=== PATIENT | male | born 2000 | race African-American/Black ===

== ENCOUNTER 2024-02-03 02:03 | Emergency (ER) | payer OTHER, SELFPAY ==
[2024-02-03] MEDS ORDERED: KETOROLAC 30 MG/ML INJ ONE (02:27)
[2024-02-03] MEDS ORDERED: ONDANSETRON 4 MG/2 ML VIAL ONE (02:27)
[2024-02-03] MEDS ORDERED: NA CHLORIDE 0.9% 1,000 ML ONE (02:27)
[2024-02-03 03:34] LABS: Albumin 3.7 g/dL (3.4-5.0); Albumin/Globulin Ratio 0.8 (1.1-1.8); Anion Gap 8.2 mEq/L (5.0-15.0); Bilirubin Total 0.4 mg/dL (0.2-1.0); Globulin 4.4 g/dL (2.3-3.5); Potassium 3.2 mEq/L (3.5-5.1); Protein, Total 8.1 g/dL (6.4-8.2); Specific Gravity > 1.030 (1.005-1.030); Sqamous Epithelial None Seen /HPF (None Seen); Urine Bacteria 20-50 /HPF (<20); Urine Bilirubin NEGATIVE (Negative); Urine Blood Trace (Negative); Urine Clarity Extremely Turbid (Clear); Urine Color Yellow (Yellow); Urine Culture Reflex Order REFLEXED; Urine Glucose NEGATIVE (Negative); Urine Ketones NEGATIVE (Negative); Urine Microscopic Reflex YN ORDER UMIC; Urine Mucus 2+ /HPF (None Seen); Urine Nitrite NEGATIVE (Negative); Urine Protein TRACE (Negative); Urine RBC <5 /HPF (None Seen); Urine Urobilinogen Normal (Normal); Urine WBC >50 /HPF (<5); Urine pH 5.5 (5.0-7.0)
[2024-02-03 03:36] LABS: Absolute Lymphocytes (CBC) 0.8 K/uL (0.7-4.9); Absolute Monocytes 0.7 K/uL (0.1-1.3); Absolute Neutrophil 5.8 K/uL (1.8-8.0); Basophils % 0.3 % (0-1.3); Eosinophils % 0.4 % (0-4.4); Hematocrit 40.6 % (39.6-49.0); Hemoglobin 12.8 g/dL (13.6-17.9); Lymphocytes % 10.5 % (15.3-44.8); MCH 21.9 pg (27.0-35.0); MCHC 31.6 g/dL (32.0-36.0); MCV 69.2 fL (80-100); MPV 7.3 fL (7.6-11.3); Monocytes % 9.5 % (3.3-12.3); Neutrophils % 79.3 % (41.7-73.7); Platelets 262 thou/uL (152-406); RBC Red Blood Cell Count 5.86 M/uL (4.33-5.43); Red Cell Distribution Width 15.3 % (12.1-15.2)
[2024-02-03 03:37] LABS: Blood Morphology Comment NOTED (NOT SEEN); Hypochromasia 1+; Microcytosis 1+; Platelet Estimate ADEQ; White Blood Cell Scan OK (OK)
--- NOTE | 2024-02-03 03:43 | EDPHYS ---
Physician Documentation [facility] Name: Jabari Purdy Age: 23 yrs Sex: Male : 2000 Arrival Date: 02/03/2024 Time: 01:58 Bed 7 Private MD: ED Physician Abram Wu HPI: 02/02 02:32 This 23 yrs old Black or Male presents to ER via Ambulatory with rt complaints of Abdominal Pain. 02:32 Patient presents to the ED with abdominal pain, nausea, vomiting, diarrhea since rt Tuesday. Patient states has not been working with him, now. Did take Imodium which helped the diarrhea. Took Pepto to no relief. Denies other acute complaints at this time, symptoms are moderate in severity, no other aggravating or alleviating factors.. Historical: - Allergies: 02:20 No Known Allergies; al5 - PMHx: 02:20 None; al5 - PSHx: 02:20 None; al5 - Immunization history:: Adult Immunizations up to date. - Infectious Disease History:: Denies. - Social history:: Smoking status: Patient denies any tobacco usage or history of. - Family history:: not pertinent. ROS: 02:32 Constitutional: Negative for fever, chills, and weight loss, Cardiovascular: Negative rt for chest pain, palpitations, and edema, Respiratory: Negative for shortness of breath, cough, wheezing, and pleuritic chest pain, MS/Extremity: Negative for injury and deformity, Skin: Negative for injury, rash, and discoloration, Neuro: Negative for headache, weakness, numbness, tingling, and seizure, 02:32 Abdomen/GI: Positive for abdominal pain, nausea, vomiting, and diarrhea, Exam: 02:32 Constitutional: This is a well developed, well nourished patient who is awake, alert, rt and in no acute distress. Head/Face: Normocephalic, atraumatic. Chest/axilla: Normal chest wall appearance and motion. Nontender with no deformity. No lesions are appreciated. Cardiovascular: Regular rate and rhythm with a normal S1 and S2. No gallops, murmurs, or rubs. Normal PMI, no JVD. No pulse deficits. Respiratory: Lungs have equal breath sounds bilaterally, clear to auscultation and percussion. No rales, rhonchi or wheezes noted. No increased work of breathing, no retractions or nasal flaring. Skin: Warm, dry with normal turgor. Normal color with no rashes, no lesions, and no evidence of cellulitis. MS/ Extremity: Pulses equal, no cyanosis. Neurovascular intact. Full, normal range of motion. Neuro: Awake and alert, GCS 15, oriented to person, place, time, and situation. Cranial nerves II-XII grossly intact. Motor strength 5/5 in all extremities. Sensory grossly intact. Cerebellar exam normal. Normal gait. 02:32 Abdomen/GI: Mild tenderness diffusely without rebound, guarding, distention, Vital Signs: 02:18 BP 137 / 84; Pulse 104; Resp 18; Temp 97.7; Pulse Ox 99% on R/A; Weight 108.86 kg; al5 Height 6 ft. 2 in. ; 03:30 BP 141 / 86; Pulse 87; Resp 17 S; Pulse Ox 100% on R/A; ha1 04:12 BP 124 / 89; Pulse 81; Resp 17 S; Pulse Ox 100% on R/A; ha1 02:18 Body Mass Index 30.81 (108.86 kg, 187.96 cm) al5 MDM: 02:13 Medical Screening Exam initiated rt 04:29 Differential Diagnosis Gastroenteritis, viral syndrome. Data reviewed: vital signs, rt nurses notes, lab test result(s). I considered the following discharge prescriptions or medication management in the emergency department Medications were administered in the Emergency Department. See MAR. Test considered but Not performed: CT: Benign abdominal examination, symptoms significantly improving with treatment in the ED, low suspicion for appendicitis, cholecystitis clinically, CT scan is not indicated. Counseling: I had a detailed discussion with the patient and/or guardian regarding the historical points, exam findings, and any diagnostic results supporting the discharge/admit diagnosis, lab results, the need for outpatient follow up, to return to the emergency department if symptoms worsen or persist or if there are any questions or concerns that arise at home. Response to treatment: the patient's symptoms have markedly improved after treatment. ED course: Patient with bacteria in the urine but has no urinary symptoms, discussed this with the patient, will send for urine culture, however, will hold on antibiotics at this time as they are likely to worsen the diarrhea.. 02/02 02:18 Order name: CBC with Diff; Complete Time: 03:45 rt 02/02 02:18 Order name: CMP; Complete Time: 03:45 rt 02/02 02:18 Order name: Lipase; Complete Time: 03:45 rt 02/02 02:18 Order name: Urinalysis w/ reflexes rt 02/02 03:37 Order name: CBC Smear Scan; Complete Time: 03:45 EDMS 02/02 03:38 Order name: Urine Culture EDMS 02/02 02:18 Order name: IV Saline Lock; Complete Time: 02:24 rt 02/02 02:18 Order name: Labs collected and sent; Complete Time: 02:24 rt Administered Medications: 02:33 Drug: TORadol - Ketorolac IVP 15 mg IVP once Route: IVP; Site: right antecubital; al5 04:12 Follow up: Response: No adverse reaction; Pain is decreased al5 02:33 Drug: Ondansetron IVP 4 mg IVP once; over 2 minutes Route: IVP; Site: right antecubital;al5 04:11 Follow up: Response: No adverse reaction; Nausea is decreased al5 02:33 Drug: NS 0.9% IV 1000 ml IV at 1 bolus Per protocol; to be given as a bolus over 60 al5 minutes Route: IV; Rate: 1 bolus; Site: right antecubital; 04:12 Follow up: Response: No adverse reaction; IV Status: Completed infusion; IV Intake: al5 1000ml Disposition Summary: 02/03/24 03:42 Discharge Ordered Notes: Location: Home rt Problem: new rt Symptoms: have improved rt Condition: Stable rt Diagnosis - Nausea with vomiting, unspecified rt - diarrhea rt Followup: rt - With: Private Physician - When: 2 - 3 days - Reason: Discharge Instructions: - Discharge Summary Sheet rt - Diarrhea, Adult rt - Nausea and Vomiting, Adult rt Forms: - Medication Reconciliation Form rt - Antibiotic Education rt - Prescription Opioid Use rt - Patient Portal Instructions rt - Leadership Thank You Letter rt Prescriptions: - ondansetron 4 mg Oral Tablet,disintegrating - take 1 tablet ORAL route every 6 hours for 3 days as needed for nausea; 15 rt tablet; Refills: 0, Product Selection Permitted - dicyclomine 10 mg Oral capsule - take 1 capsule ORAL route every 8 hours as needed for abdominal pain; 15 rt capsule; Refills: 0, Product Selection Permitted Signatures: Dispatcher [employer] EDMS Abram Wu MD MD rt Citlalli Crain RN RN al5 Corrections: (The following items were deleted from the chart) 03: 03:19 CBC+H.LAB.BRZ ordered. EDMS EDMS 03:19 03:19 COMPREHENSIVE METABOLIC PANEL+C.LAB.BRZ ordered. EDMS EDMS 03:19 03:19 LIPASE+C.LAB.BRZ ordered. EDMS EDMS 03:19 03:19 Urinalysis+U.LAB.BRZ ordered. EDMS EDMS
--- NOTE | 2024-02-03 03:43 | ER ---
Nurse's Notes [facility] Name: Jabari Purdy Age: 23 yrs Sex: Male : 2000 Arrival Date: 02/03/2024 Time: 01:58 Bed 7 Private MD: Diagnosis: Nausea with vomiting, unspecified;diarrhea Presentation: 02/02 02:18 Chief complaint: Patient states: c/o n/v/d and upper abdominal pain since al5 Tuesday-Tuesday. states he has been taking Imodium and pepto with no relief. Coronavirus screen: At this time, the client does not indicate any symptoms associated with coronavirus-19. Ebola Screen: No symptoms or risks identified at this time. Initial Sepsis Screen: Does the patient meet any 2 criteria? HR > 90 bpm. No. Patient's initial sepsis screen is negative. Does the patient have a suspected source of infection? No. Patient's initial sepsis screen is negative. Risk Assessment: Do you want to hurt yourself or someone else? Patient reports no desire to harm self or others. Onset of symptoms was January 31, 2024. 02:18 Method Of Arrival: Ambulatory al5 02:18 Acuity: WILFREDO 3 al5 Triage Assessment: 02:21 General: Appears in no apparent distress. uncomfortable, Behavior is calm, cooperative. al5 Pain: Complains of pain in epigastric area. EENT: No signs and/or symptoms were reported regarding the EENT system. Neuro: Level of Consciousness is awake, alert, obeys commands, Oriented to person, place, time, situation. Cardiovascular: Capillary refill < 3 seconds Patient's skin is warm and dry. Respiratory: Airway is patent Respiratory effort is even, unlabored, Respiratory pattern is regular, symmetrical. GI: Abdomen is flat, non-distended, Reports upper abdominal pain, diarrhea, nausea, vomiting. : No signs and/or symptoms were reported regarding the genitourinary system. Derm: Skin is intact, Skin is pink, warm \T\ dry. normal. Musculoskeletal: No signs and/or symptoms reported regarding the musculoskeletal system. Historical: - Allergies: 02:20 No Known Allergies; al5 - PMHx: 02:20 None; al5 - PSHx: 02:20 None; al5 - Immunization history:: Adult Immunizations up to date. - Infectious Disease History:: Denies. - Social history:: Smoking status: Patient denies any tobacco usage or history of. - Family history:: not pertinent. Screenin:22 [facility] ED Fall Risk Assessment (Adult) History of falling in the last 3 months, al5 including since admission No falls in past 3 months (0 pts) Confusion or Disorientation No (0 pts) Intoxicated or Sedated No (0 pts) Impaired Gait No (0 pts) Mobility Assist Device Used No (0 pt) Altered Elimination No (0 pt) Score/Fall Risk Level 0 - 2 = Low Risk Oriented to surroundings, Maintained a safe environment, Hourly rounding (assess needs \T\ fall precautionary measures) done. Abuse screen: Denies threats or abuse. Denies injuries from another. Nutritional screening: No deficits noted. Tuberculosis screening: No symptoms or risk factors identified. Assessment: 02:22 Reassessment: see triage assessment. al5 02:23 GI: Bowel sounds present X 4 quads. Abd is soft X 4 quads Abdomen is tender to al5 palpation in epigastric area. 03:54 Reassessment: Patient appears in no apparent distress at this time. Patient and/or al5 family updated on plan of care and expected duration. Pain level reassessed. Patient is alert, oriented x 3, equal unlabored respirations, skin warm/dry/pink. Patient states feeling better. Patient states symptoms have improved. Vital Signs: 02:18 BP 137 / 84; Pulse 104; Resp 18; Temp 97.7; Pulse Ox 99% on R/A; Weight 108.86 kg; al5 Height 6 ft. 2 in. ; 03:30 BP 141 / 86; Pulse 87; Resp 17 S; Pulse Ox 100% on R/A; ha1 04:12 BP 124 / 89; Pulse 81; Resp 17 S; Pulse Ox 100% on R/A; ha1 02:18 Body Mass Index 30.81 (108.86 kg, 187.96 cm) al5 ED Course: 02:03 Patient arrived in ED. gm2 02:03 Abram Wu MD is Attending Physician. rt 02:17 Inserted saline lock: 20 gauge in right antecubital area, using aseptic technique. ha1 Blood collected. Flushed with 10 mL NS. 02:20 Triage completed. al5 02:21 Arm band placed on right wrist. Patient placed in the treatment room, on a stretcher. al5 02:22 Patient has correct armband on for positive identification. Bed in low position. Call al5 light in reach. Side rails up X 1. Provided Education on: plan of care. 02:22 No provider procedures requiring assistance completed. al5 02:33 Citlalli Crain, RN is Primary Nurse. al5 04:17 IV discontinued, intact, bleeding controlled, No redness/swelling at site. Pressure ha1 dressing applied. Administered Medications: 02:33 Drug: TORadol - Ketorolac IVP 15 mg IVP once Route: IVP; Site: right antecubital; al5 04:12 Follow up: Response: No adverse reaction; Pain is decreased al5 02:33 Drug: Ondansetron IVP 4 mg IVP once; over 2 minutes Route: IVP; Site: right antecubital;al5 04:11 Follow up: Response: No adverse reaction; Nausea is decreased al5 02:33 Drug: NS 0.9% IV 1000 ml IV at 1 bolus Per protocol; to be given as a bolus over 60 al5 minutes Route: IV; Rate: 1 bolus; Site: right antecubital; 04:12 Follow up: Response: No adverse reaction; IV Status: Completed infusion; IV Intake: al5 1000ml Medication: 02:22 VIS not applicable for this client. al5 Intake: 04:12 IV: 1000ml; Total: 1000ml. al5 Outcome: 03:42 Discharge ordered by . rt 04:16 Discharged to home ambulatory, ha1 04:16 Condition: stable 04:16 Discharge instructions given to patient, Instructed on discharge instructions, follow up and referral plans. medication usage, Demonstrated understanding of instructions, follow-up care, medications, Prescriptions given X 2, 04:17 Patient left the ED. ha1 Signatures: Yaritza Yap RN RN ha1 Abram Wu MD MD rt [place] gm2 Citlalli Crain, VIKY RN al5
[2024-02-03 04:39] VITALS: TEMP 97.7
[2024-02-03 04:40] VITALS: O2SAT 100
[2024-02-03 04:41] VITALS: BP 124/89
== END 2024-02-03 04:17 | disposition home or self-care (01) ==
LOC: ER 02:03
DX: R11.2 Nausea with vomiting, unspecified (principal); R19.7 Diarrhea, unspecified
CPT/HCPCS: 36415; 80053; 81001; 83690; 85025; 87086; 87088; 96361; 96374; 96375; 99284; J2405; J7030